=== PATIENT | female | born 1995 | race Caucasian/White ===

== ENCOUNTER 2017-01-07 13:59 | Emergency (ER) | payer OTHER ==
[~2017-01-07] VITALS: Ht 167.6 cm; Wt 62.0 kg
[2017-01-07 14:02] VITALS: BP 115/54; TEMP 98
[2017-01-07 14:47] LABS: PH 5 (5-8); URINE APPEARANCE Hazy; URINE BACTERIA None Seen /hpf; URINE BILIRUBIN Negative (NEGATIVE); URINE BLOOD 1+ (NEGATIVE); URINE COLOR Yellow; URINE GLUCOSE Negative (NEGATIVE); URINE KETONE 1+ (NEGATIVE); URINE RBC 0-2 /hpf; URINE UROBILINOGEN Negative (NEGATIVE)
[2017-01-07] MEDS ORDERED: CEFTIN500 MG PO (15:23)
[2017-01-07 15:29] VITALS: PULSE 86
[2017-01-07 16:34] LABS: CHLAMYDIA/TRACH by PCR Female NOT DETECTED; NEISSERIA GON by PCR Female NOT DETECTED
== END 2017-01-07 15:30 | disposition home or self-care (01) ==
LOC: COL.ER 13:59
PROVIDERS: Nurse Practitioner
DX: N39.0 Urinary tract infection, site not specified (principal)